=== PATIENT | male | born 1965 | race Caucasian/White ===

== ENCOUNTER 2016-10-23 09:24 | Outpatient (CLI) | payer OTHER | END 2016-10-23 09:25 | disposition home or self-care (01) | DX: G47.33 Obstructive sleep apnea (adult) (pediatric) (principal) ==

== ENCOUNTER 2017-12-03 09:08 | Outpatient (CLI) | payer OTHER | END 2017-12-03 09:09 | disposition home or self-care (01) | LOC: SC 09:08 | PROVIDERS: ATTEND Internal Medicine Pulmonary Disease | DX: G47.33 Obstructive sleep apnea (adult) (pediatric) (principal) | CPT/HCPCS: 99212; 99213 ==

== ENCOUNTER 2019-07-22 14:58 | Outpatient (CLI) | payer OTHER ==
[2019-07-22 16:20] VITALS: BP 130/80
--- NOTE | 2019-07-22 16:20 | SLEEP CARE CONSULTATION ---
Information from patient questionnaire entered by Laverne Zee. I have reviewed and concur with the information entered by Laverne Zee. This document represents the service I personally performed and the decisions made by me, Kathy Gray, RN, MSN, [employer]. History of Present Illness Previous diagnosis: Moderate, Obstructive Sleep Apnea-Hypopnea Syndrome AHI: 24.5 Reason for follow up: annual Equipment type: CPAP Equipment obtained from: [employer] Mask style: Nasal (Wisp) Mask brand: Respironics Backup mask available: Yes Last cushion change: 2 -3 weeks ago Prior sleep studies: Yes CPAP Compliance Data - Data Reviewed with Patient Average duration of nightly device use: 7h 51m Compliance rate %: 98.9 Current pressure setting (cmH2O): 8-12 Humidity settin Average residual AHI: 0.4 Average large leak: 0s Subjective Patient concerns: reports: other (the CPAP is starting to make wheeze noise ). denies: aerophagia, mask discomfort, air blowing in eyes, mask leak noise, condensation in mask/hose, nasal congestion, dry mouth, nose, throat, epistaxis Observed to snore while using device: No Current pressure setting perceived as: comfortable On therapy, patient: reports: sleeping better, awakening more refreshed, being more awake and alert during the day, more rested overall. denies: drowsiness while driving Initial [place] Sleepiness Scale score: 11 Current [place] Sleepiness Scale score: 2 Allergies and Home Medications Known drug allergies: No Home medication list reviewed: Yes Allergy and home medication list: Medication Name (generic/name brand) Strength & Dosage Hydrochlorothiazide 25mg tab one daily Simvastatin 20mg tab one daily at bedtime Metoprolol 150mg tab one daily Zyrtec 10mg tab one daily Montelukast 10mg tab one daily Vitamin D 1000mg tab one daily Aspirin 81mg tab one daily Eliquis 5mg bid lisinopril 5mg daily vitamin B12 1000mg daily Review of Systems Review of systems same as previous: Yes (diagnosis of atrial fibrillation 4 years) Physical Exam Blood Pressure: 130/80 Cuff size: long Heart Rate: 57 O2 Saturation: 98 Height: 6 ft 3 in Weight: 336 lb 3.2 oz Weight change since last visit: lost 15 pounds Body Mass Index: 42.0 BMI Classification: Obesity Class 3 Impression and Plan 1. Obstructive Sleep Apnea-Hypopnea Syndrome, moderate, with good treatment compliance and good apnea control. On CPAP therapy, the patient has better sleep quality and is more rested overall. His CPAP is over 5 years old and of reasonable use. It is also making a wheezing noise so I will update his CPAP. I showed him the new updated CPAPs and he chose the Dreamstation. He also has lost weight. I explained how his weight loss will reduce his CPAP pressure and apnea risk as well as overall health risks. He wants to lose about 100 more pounds slowly. I showed him his BMI on chart and goal. His current autoCPAP pressure range should accomodate some weight loss. Symptoms to report for pressure adjustment discussed. Patient's apnea severity and rationale for treatment to reduce apnea, improve sleep quality and reduce cardiovascular and cerebrovascular events was reviewed. Battery options discussed for camping and advised to check the [employer] web site for information. I explained it is costly and requires a prescription. I also reviewed the benefit of consistent device use of CPAP for hypertension, arrhythmia. He would also like to transfer to new DME. The one he transferred last year he did not use and needs to use same DME as his spouse. * Continue CPAP pressure at 9 cmH2O * Update CPAP * Dreamstation preferred. * TRansfer to new DME * Check out CPAP battery for camping * Notify me if snoring with mask or feeling that the pressure is too much or too little * Continue to lose weight * Return for follow up in 6 weeks after new device , or sooner if concerns arise I spent 100% of this 30 minute visit face to face with the patient with greater than 50% of this was spent time counseling the patient and coordination of care.
== END 2019-07-22 14:59 | disposition home or self-care (01) ==
LOC: SC 14:58
PROVIDERS: ATTEND Nurse Practitioner Family
DX: G47.33 Obstructive sleep apnea (adult) (pediatric) (principal); E66.9 Obesity, unspecified; Z68.41 Body mass index [BMI] 40.0-44.9, adult
CPT/HCPCS: 99212; 99214

== ENCOUNTER 2020-10-08 15:10 | Outpatient (CLI) | payer OTHER ==
--- NOTE | 2020-10-08 15:42 | SLEEP CARE CONSULTATION ---
Information from patient questionnaire entered by Keith Coronado. I have reviewed and concur with the information entered by Keith Coronado. This document represents the service I personally performed and the decisions made by me, Anitha Cosme ARNP. History of Present Illness Service Date and Time: 10/08/2020 1510 Previous diagnosis: Moderate, Obstructive Sleep Apnea-Hypopnea Syndrome AHI: 24.5 Reason for follow up: annual (Last seen 09/2019) Equipment type: CPAP Equipment obtained from: [facility] (getting supplies as needed) Mask style: Nasal (Wisp) Backup mask available: Yes (old mask) Last cushion change: 1 month Prior sleep studies: Yes Year and Where: 2013 [facility] additional information: TALITA FRYE was diagnosed to have moderate, AHI 24.5, obstructive sleep apnea- hypopnea syndrome and returned today for CPAP therapy annual follow-up. CPAP Compliance Data - Data Reviewed with Patient Average duration of nightly device use: 7 h 32 min Compliance rate %: 99 Current pressure setting (cmH2O): 8-12 Average residual AHI: 0.3 Central apnea: 0.0 Obstructive apnea: 0.2 Subjective Missed days of use due to: reports: other (Power outage) Patient concerns: reports: condensation in mask/hose, other (Water in nose). denies: aerophagia, mask discomfort, air blowing in eyes, mask leak noise, nasal congestion, dry mouth, nose, throat, epistaxis Observed to snore while using device: No Current pressure setting perceived as: comfortable On therapy, patient: reports: sleeping better, awakening more refreshed, being more awake and alert during the day, more rested overall. denies: drowsiness while driving Initial [place] Sleepiness Scale score: 11 (in 2013) Current [place] Sleepiness Scale score: 1 Allergies and Home Medications Home medication list reviewed: Yes (no changes) Review of Systems Review of systems same as previous: No (possible gout in right ankle) Physical Exam Heart Rate: 97 O2 Saturation: 99 Height: 6 ft 3 in Weight: 351 lb (with walking boot on) Body Mass Index: 43.9 BMI Classification: Morbidly Obese Impression and Plan 1. Obstructive Sleep Apnea-Hypopnea Syndrome, moderate, with good treatment compliance and good apnea control. On CPAP therapy, the patient has better sleep quality and is more rested overall. He has had some condensation in his mask. I advised him to increase his heated hose or reduce the humidity to reduce the condensation. He voiced understanding. Patient's current BMI is 43.9. He is currently in a walking boot for possible gout in his right ankle. I reviewed with patient that obesity increases the risk of apnea, CPAP pressure requirements and overall health risks especially cardiovascular and diabetes. Thus patient is advised to try to lose weight. Weight loss can be done with reducing portion size, reducing refined foods and balancing content with vegetables, fruit and whole grain foods. In addition cutting out sugar and processed foods as well as increasing activity is beneficial. The patient's CPAP pressure range should accommodate some weight loss. Patient's apnea severity and rationale for treatment to reduce apnea, improve sleep quality and reduce cardiovascular and cerebrovascular events was reviewed. I also reviewed the benefit of consistent device use of CPAP for hypertension. * Continue auto CPAP pressure at 8-12 cmH2O * Notify me if snoring with mask or feeling that the pressure is too much or too little * Attempt to lose weight * Call this office if any problems using CPAP * Return for follow up in 1 year, or sooner if concerns arise Counseling Topics: Spare mask, Weight loss health impact Visit Type: In Office Time Spent with Patient (minutes): 16 Provider Statement: I spent 100% of the Face to Face Visit with the patient with greater than 50% spent counseling the patient and coordination of care.
== END 2020-10-08 15:11 | disposition home or self-care (01) ==
LOC: SC 15:10
PROVIDERS: ATTEND Nurse Practitioner Family
DX: G47.33 Obstructive sleep apnea (adult) (pediatric) (principal); E66.01 Morbid (severe) obesity due to excess calories; Z68.41 Body mass index [BMI] 40.0-44.9, adult
CPT/HCPCS: 99212

== ENCOUNTER 2022-02-22 11:22 | Outpatient (CLI) | payer OTHER ==
[2022-02-22 12:13] VITALS: BP 120/79
--- NOTE | 2022-02-22 12:13 | SLEEP CARE CONSULTATION ---
Information from patient questionnaire entered by Roselia King MA. I have reviewed and concur with the information entered by Roselia King MA. This document represents the service I personally performed and the decisions made by , Anitha Cosme ARNP. History of Present Illness Service Date and Time: 02/22/2022 1122 Previous diagnosis: Moderate, Obstructive Sleep Apnea-Hypopnea Syndrome AHI: 24.5 Reason for follow up: annual (LAST SEEN 10/17, RESCONTRERAS, PICKETT 08/08/2019, ) Equipment type: CPAP Equipment obtained from: [employer] (getting supplies as needed) Mask style: Nasal (Wisp) Mask brand: Respironics Backup mask available: Yes (other masks) Last cushion change: 1 month Prior sleep studies: Yes Year and Where: 2013 [facility] HPI additional information: TALITA FRYE was diagnosed to have moderate, AHI 24.5, obstructive sleep apnea- hypopnea syndrome and returned today for CPAP therapy annual follow-up. Sleep Study - Results Prior sleep studies: Yes Year and Where: 2013 [facility] CPAP Compliance Data - Data Reviewed with Patient Average duration of nightly device use: 7 HOURS 52 MINUTES Compliance rate %: 99 (08/25/2021-02/20/2022; 180 days; 179/180 usage) Current pressure setting (cmH2O): 8-12 Average residual AHI: 0.2 Central apnea: .0 Obstructive apnea: .2 Hypopnea: .0 Average large leak: .0 Subjective Missed days of use due to: reports: other (power outage) Patient concerns: denies: aerophagia, mask discomfort, air blowing in eyes, mask leak noise, condensation in mask/hose, nasal congestion, dry mouth, nose, throat, epistaxis, other Observed to snore while using device: No Current pressure setting perceived as: comfortable On therapy, patient: reports: sleeping better, awakening more refreshed, being more awake and alert during the day, more rested overall. denies: drowsiness while driving Initial [place] Sleepiness Scale score: 11 (in 2013) Current [place] Sleepiness Scale score: 2 Allergies and Home Medications Home medication list reviewed: Yes (stopped Metoprolol; started Sotalol 120 mg bid) Review of Systems Review of systems same as previous: No (heart ablation for Afib Jul 2021) Physical Exam Vital signs obtained and entered by: Jamil KING CMA AAPR Blood Pressure: 120/79 (resp 16, pulse 62, left) Heart Rate: 63 O2 Saturation: 98 Height: 6 ft 3 in Weight: 324 lb (clothes) Weight change since last visit: excer, up to ankle inj. down 26 lbs, Body Mass Index: 40.5 BMI Classification: Morbidly Obese Impression and Plan 1. Obstructive Sleep Apnea-Hypopnea Syndrome, moderate, with excellent treatment compliance and excellent apnea control. On CPAP therapy, the patient has better sleep quality and is more rested overall. Patient denies problems with oral dryness, nasal congestion, epistaxis, skin irritation or aerophagia. Patient's apnea severity and rationale for treatment to reduce apnea, improve sleep quality and reduce cardiovascular and cerebrovascular events was reviewed. I also reviewed the benefit of consistent device use of CPAP for hypertension. 2. Obesity, unspecified. Patient has lost weight. Currently patients BMI is 40.5. Obesity increases the risk of apnea, CPAP pressure requirements and overall health risks especially cardiovascular and diabetes. Thus patient is advised to continue to try to lose weight. Weight loss can be done with reducing portion size, reducing refined foods and balancing content with vegetables, fruit and whole grain foods. In addition, patient encouraged to get regular exercise. The patient's CPAP pressure range should accommodate some weight loss. Symptoms to report for additional pressure adjustment discussed. * Continue auto CPAP pressure at 8-12 cmH2O * Notify me if snoring with mask or feeling that the pressure is too much or too little * Attempt to lose weight * Call this office if any problems using CPAP * Return for follow up in 1 year, or sooner if concerns arise Counseling Topics: Spare mask, Weight loss health impact Visit Type: In Office Time Spent with Patient (minutes): 21 Provider Statement: I spent 100% of the Face to Face Visit with the patient with greater than 50% spent counseling the patient and coordination of care.
== END 2022-02-22 11:23 | disposition home or self-care (01) ==
LOC: SC 11:22
PROVIDERS: ATTEND Nurse Practitioner Family
DX: G47.33 Obstructive sleep apnea (adult) (pediatric) (principal); E66.01 Morbid (severe) obesity due to excess calories; Z68.41 Body mass index [BMI] 40.0-44.9, adult
CPT/HCPCS: 99212; 99213

== ENCOUNTER 2023-03-07 08:08 | Outpatient (CLI) | payer OTHER ==
--- NOTE | 2023-03-07 08:44 | Sleep Patient Instructions ---
Sleep Center Visit Summary - Patient Visit Information Reason for Visit: Annual visit for CPAP therapy - Patient Instructions Additional Instructions: You will continue with CPAP therapy with pressure set at 8-12 cmH2O. A supply prescription will be updated with your DME. We encourage you to continue to try to lose weight. Please follow up with the sleep care office in 1 year. - Clinic Information Contact: [facility] [address] [place] [address] [email or web address] T: [phone]
--- NOTE | 2023-03-07 08:54 | SLEEP CARE CONSULTATION ---
Information from patient questionnaire entered by Keerthi Evans. I have reviewed and concur with the information entered by Keerthi Evans. This document represents the service I personally performed and the decisions made by me, Anitha Cosme ARNP. History of Present Illness Service Date and Time: 03/07/2023 0808 Previous diagnosis: Moderate, Obstructive Sleep Apnea-Hypopnea Syndrome AHI: 24.5 Reason for follow up: annual (LAST SEEN 01/2022) Equipment type: CPAP (RESMED 10, s/u 07/2019) Equipment obtained from: [employer] (getting supplies as needed) Mask style: Nasal (Wisp) Mask brand: Respironics Backup mask available: Yes (old mask) Last cushion change: 1 month Prior sleep studies: Yes Year and Where: 2013 [facility] HPI additional information: TALITA FRYE was diagnosed to have moderate, AHI 24.5, obstructive sleep apnea- hypopnea syndrome and returned today for CPAP therapy annual follow-up. Sleep Study - Results Prior sleep studies: Yes Year and Where: 2013 [facility] CPAP Compliance Data - Data Reviewed with Patient Average duration of nightly device use: 7 HRS 18 MIN Compliance rate %: 100 (09/07/22-03/05/23; 180/180 days used) Current pressure setting (cmH2O): 8-12 Average residual AHI: 0.2 Central apnea: 0 Obstructive apnea: 0.1 Hypopnea: 0 Subjective Patient concerns: denies: aerophagia, mask discomfort, air blowing in eyes, mask leak noise, condensation in mask/hose, nasal congestion, dry mouth, nose, t hroat, epistaxis Observed to snore while using device: No Current pressure setting perceived as: comfortable On therapy, patient: reports: sleeping better, awakening more refreshed, being more awake and alert during the day, more rested overall. denies: drowsiness while driving Initial [place] Sleepiness Scale score: 11 (in 2013) Current [place] Sleepiness Scale score: 1 (03/07/23) Allergies and Home Medications Known drug allergies: No Drug allergies reviewed: Yes Home medication list reviewed: Yes (Tikosyn 250 mg 2 x daily) Review of Systems Review of systems same as previous: Yes (no changes) Physical Exam Vital signs obtained and entered by: KEERTHI Langford MA Blood Pressure: 128/64 (LEFT ARM) Cuff size: regular Heart Rate: 60 O2 Saturation: 98 Height: 6 ft 3 in Weight: 340 lb 3.2 oz Weight change since last visit: 15 lb gain Body Mass Index: 42.5 BMI Classification: Morbidly Obese Impression and Plan 1. Obstructive Sleep Apnea-Hypopnea Syndrome, moderate, with good treatment compliance and good apnea control. On CPAP therapy, the patient has better sleep quality and is more rested overall. Patient has significant improvement of their sleep apnea and is satisfied with current CPAP therapy. Patient's apnea severity and rationale for treatment to reduce apnea, improve sleep quality and reduce cardiovascular and cerebrovascular events was reviewed. Patient denies problems with oral dryness, nasal congestion, epistaxis, skin irritation or aerophagia. I also reviewed the benefit of consistent device use of CPAP for hypertension. 2. Obesity, unspecified. Currently patients BMI is 42.5. He has gained weight. Obesity increases the risk of apnea, CPAP pressure requirements and overall health risks especially cardiovascular and diabetes. Thus patient is advised to try to lose weight. * Continue auto CPAP pressure at 8-12 cmH2O * Update supply prescription * Notify me if snoring with mask or feeling that the pressure is too much or too little * Attempt to lose weight * Call this office if any problems using CPAP * Return for follow up in 1 year, or sooner if concerns arise Counseling Topics: Spare mask, Weight loss health impact Visit Type: In Office Time Spent with Patient (minutes): 23 Provider Statement: I spent 100% of the Face to Face Visit with the patient with greater than 50% spent counseling the patient and coordination of care.
[2023-03-07 08:57] VITALS: BP 128/64
== END 2023-03-07 08:09 | disposition home or self-care (01) ==
LOC: SC 08:08
PROVIDERS: ATTEND Nurse Practitioner Family
DX: G47.33 Obstructive sleep apnea (adult) (pediatric) (principal); E66.01 Morbid (severe) obesity due to excess calories; Z68.41 Body mass index [BMI] 40.0-44.9, adult
CPT/HCPCS: 99212; 99213

== ENCOUNTER 2024-03-21 11:14 | Outpatient (CLI) | payer OTHER ==
--- NOTE | 2024-03-21 11:55 | Sleep Patient Instructions ---
Sleep Center Visit Summary - Patient Visit Information Reason for Visit: Annual follow-up - Patient Instructions Additional Instructions: You will continue with CPAP therapy with pressure set at 8-12 cmH2O. A supply prescription will be updated with your DME. We encourage you to continue to try to lose weight. Please follow up with the sleep care office in 1 year. - Clinic Information Contact: [facility] [address] [place] [address] [email or web address] T: [phone]
--- NOTE | 2024-03-21 12:01 | SLEEP CARE CONSULTATION ---
Information from patient questionnaire entered by Keerthi Evans. I have reviewed and concur with the information entered by Keerthi Evans. This document represents the service I personally performed and the decisions made by me, Anitha Cosme ARNP. History of Present Illness Service Date and Time: 03/21/2024 1114 Previous diagnosis: Moderate, Obstructive Sleep Apnea-Hypopnea Syndrome AHI: 24.5 Reason for follow up: annual (LAAST SEEN 02/2023) Equipment type: CPAP (RESMED 10, s/u 07/2019) Equipment obtained from: [employer] (getting supplies as needed) Mask style: Nasal (Wisp) Backup mask available: Yes Last cushion change: 1.5 months Prior sleep studies: Yes Year and Where: 2013 [facility] HPI additional information: TALITA FRYE was diagnosed to have moderate, AHI 24.5, obstructive sleep apnea- hypopnea syndrome and returned today for CPAP therapy annual follow-up. Sleep Study - Results Prior sleep studies: Yes Year and Where: 2013 [facility] CPAP Compliance Data - Data Reviewed with Patient Average duration of nightly device use: 7 HRS 23 MINS Compliance rate %: 99 (03/20/23-03/18/24; 364/365 days used) Current pressure setting (cmH2O): 8-12 Average residual AHI: 0.2 Central apnea: 0 Obstructive apnea: 0.2 Average large leak: 0 L/min Subjective Missed days of use due to: reports: other (had colonoscopy and did prep night before) Patient concerns: denies: aerophagia, mask discomfort, air blowing in eyes, mask leak noise, condensation in mask/hose, nasal congestion, dry mouth, nose, throat, epistaxis Observed to snore while using device: No Current pressure setting perceived as: comfortable On therapy, patient: reports: sleeping better, awakening more refreshed, being more awake and alert during the day, more rested overall. denies: drowsiness while driving Initial [place] Sleepiness Scale score: 11 (in 2013) Current [place] Sleepiness Scale score: 2 (03/21/24) Allergies and Home Medications Known drug allergies: No (as listed) Drug allergies reviewed: Yes Home medication list reviewed: Yes (as listed) Allergy and home medication list: Allergies egg Allergy (Verified 03/21/24 11:28) gluten Allergy (Verified 03/21/24 11:28) shrimp Allergy (Verified 03/21/24 11:28) Home Medications Naltrexone HCl/Bupropion HCl [Contrave ER 8-90 mg Tablet] See Rx Instructions .ROUTE .COMPLEX 03/21/24 [History Confirmed 03/21/24] amLODIPine [Norvasc] See Rx Instructions .ROUTE .COMPLEX 03/21/24 [History Confirmed 03/21/24] Review of Systems Review of systems same as previous: Yes (NO CHANGE) Physical Exam Vital signs obtained and entered by: KEERTHI Langford MA Blood Pressure: 170/98 (LEFT ARM) Cuff size: long Heart Rate: 64 O2 Saturation: 97 Height: 6 ft 3 in Weight: 317 lb 12.8 oz Weight change since last visit: 23 Body Mass Index: 39.6 BMI Classification: Obese Impression and Plan 1. Obstructive Sleep Apnea-Hypopnea Syndrome, moderate, with good treatment compliance and good apnea control. On CPAP therapy, the patient has better sleep quality and is more rested overall. He has significant improvement of his sleep apnea and is satisfied with current CPAP therapy. Patient denies problems with oral dryness, nasal congestion, epistaxis, skin irritation or aerophagia. Patient's apnea severity and rationale for treatment to reduce apnea, improve sleep quality and reduce cardiovascular and cerebrovascular events was reviewed. I also reviewed the benefit of consistent device use of CPAP for hypertension. 2. Obesity, unspecified. Currently patients BMI is 39.6. He is taking Contrave and is losing weight. Obesity increases the risk of apnea, CPAP pressure requirements and overall health risks especially cardiovascular and diabetes. Thus patient is advised to continue to try to lose weight. * Continue auto CPAP pressure at 8-12 cmH2O * Update supply prescription * Notify me if snoring with mask or feeling that the pressure is too much or too little * Attempt to lose weight * Call this office if any problems using CPAP * Return for follow up in 12 months, or sooner if concerns arise Counseling Topics: Weight loss health impact Prescriptions: Device supplies Follow up with Sleep Care in: 1 year Visit Type: In Office Time Spent with Patient (minutes): 24 Provider Statement: I spent 100% of the Face to Face Visit with the patient with greater than 50% spent counseling the patient and coordination of care.
[2024-03-21 12:37] VITALS: BP 170/98; O2SAT 97
== END 2024-03-21 11:15 | disposition home or self-care (01) ==
LOC: SC 11:14
PROVIDERS: ATTEND Nurse Practitioner Family
DX: G47.33 Obstructive sleep apnea (adult) (pediatric) (principal); E66.9 Obesity, unspecified; Z68.39 Body mass index [BMI] 39.0-39.9, adult
CPT/HCPCS: 99212; 99213